=== PATIENT | male | born 1950 | race African-American/Black ===

== ENCOUNTER 2021-07-25 17:40 | Inpatient (IN) ==
[2021-07-25] MEDS ORDERED: ONDANSETRON 4 MG/2 ML VIAL IV PRN (20:50)
[2021-07-25] MEDS ORDERED: ACETAMINOPHEN 325 MG TABLET PO PRN (20:50)
[2021-07-25] MEDS ORDERED: ZALEPLON 5 MG CAPSULE PO PRN (20:50)
[2021-07-25] MEDS ORDERED: DEXTROSE 10% 250 ML BAG IV PRN (20:50)
[2021-07-25] MEDS ORDERED: diphenhydrAMINE CAP 25 MG CAPSULE PO PRN (20:50)
[2021-07-25] MEDS ORDERED: GLUCAGON 1 MG VIAL IM PRN (20:50)
[2021-07-25] MEDS ORDERED: guaiFENesin/DM ER 600-30 MG TABLET PO PRN (20:50)
[2021-07-25] MEDS ORDERED: NICOTINE 21 MG/24 HR PATCH TRANSDERM PRN (20:50)
[2021-07-25] MEDS ORDERED: hydrALAZINE 20 MG/1 ML VIAL IV PRN (20:50)
[2021-07-25 21:13] LABS: Basophils % 0.2 % (0.0-0.8); Eosinophils # 0.1 10*3/uL (0.0-0.87); Eosinophils % 2.4 % (0.00-10.9); Hematocrit 34.8 VOL% (42.0-52.0); Hemoglobin 10.9 GM/DL (14.0-18.0); Immature Granulocytes % 0.4 %; Immature Granulocytes Absolute 0.02 #; Lymphocytes # 1.3 10*3/uL (1.4-4.0); Lymphocytes % 25.9 % (21.2-54.2); Mean Corpuscular HGB Conc 31.3 GM/DL (32-36); Mean Platelet Volume 10.6 FL (9.6-12.0); Monocytes # 0.7 10*3/uL (0.11-0.8); Monocytes % 13.9 % (1.7-12.7); Neutrophils % 57.2 % (38.7-73.9); Platelet Count 215 T/CUMM (130-400); Red Blood Count 4.52 MC/CUMM (3.8-5.5); Red Cell Distribution Width 14.9 % (9.3-17.3)
[2021-07-25 21:33] LABS: Calcium 8.6 MG/DL (8.5-10.1); Osmolality,Calculated 280.3 MOS/KG (273-304); Potassium 3.8 MMOL/L (3.5-5.1)
[2021-07-25] MEDS ORDERED: ENOXAPARIN 150 MG/ML SYRINGE SUBCUT ONE (21:41)
[2021-07-25 21:50] LABS: INR 1.1; PT Patient Result 11.9 SECS (10.5-12.0)
[2021-07-25] MEDS: METOPROLOL TARTRATE 25 MG TABLET PO SCH (22:19)
[2021-07-26] MEDS: ALBUTEROL/IPRATROPIUM 3 ML NEB RESP TX SCH ×4 (01:29→19:18)
[2021-07-26 02:06] LABS: Barbiturates Screen,Urine Negative (Negative); Benzodiazepines Screen,Urine Negative (Negative); Cannabinoid Screen,Urine Negative (Negative); Opiate Screen,Urine Positive (Negative); Phencyclidine Screen,Urine Negative (Negative)
[2021-07-26] MEDS ORDERED: MAGNESIUM SULF RIDER 2 GM/50 ML PREMIX IV PRN (06:23)
[2021-07-26 08:03] LABS: Calcium 8.7 MG/DL (8.5-10.1); Potassium 3.8 MMOL/L (3.5-5.1)
[2021-07-26 08:08] LABS: Osmolality,Calculated 282.3 MOS/KG (273-304)
[2021-07-26] MEDS ORDERED: MAGNESIUM SULF RIDER 2 GM/50 ML PREMIX IV ONE (08:31)
[2021-07-26] MEDS: METOPROLOL TARTRATE 25 MG TABLET PO SCH ×2 (09:46→20:36)
[2021-07-26] MEDS: PANTOPRAZOLE 40 MG TABLET PO SCH (09:46)
[2021-07-26] MEDS ORDERED: SKIN HEALING OINT (AQUAPHOR) 50 GM TUBE TOP PRN (14:06)
[2021-07-26] MEDS ORDERED: FUROSEMIDE 40 MG/4 ML VIAL IV SCH (16:00)
[2021-07-26] MEDS: FUROSEMIDE 40 MG TABLET PO SCH (16:29)
[2021-07-26] MEDS: APIXABAN 5 MG TABLET PO SCH (20:36)
[2021-07-27] MEDS: ALBUTEROL/IPRATROPIUM 3 ML NEB RESP TX SCH ×4 (00:06→19:05)
[2021-07-27 04:40] LABS: Basophils % 0.2 % (0.0-0.8); Eosinophils # 0.1 10*3/uL (0.0-0.87); Eosinophils % 2.2 % (0.00-10.9); Hematocrit 31.9 VOL% (42.0-52.0); Hemoglobin 9.6 GM/DL (14.0-18.0); Immature Granulocytes % 0.4 %; Immature Granulocytes Absolute 0.02 #; Lymphocytes # 1.5 10*3/uL (1.4-4.0); Lymphocytes % 31.9 % (21.2-54.2); Mean Corpuscular HGB Conc 30.1 GM/DL (32-36); Mean Platelet Volume 11.3 FL (9.6-12.0); Monocytes # 0.8 10*3/uL (0.11-0.8); Monocytes % 16.5 % (1.7-12.7); Neutrophils % 48.8 % (38.7-73.9); Platelet Count 170 T/CUMM (130-400); Red Blood Count 4.04 MC/CUMM (3.8-5.5); Red Cell Distribution Width 14.8 % (9.3-17.3); White Blood Count 4.6 T/CUMM (4-12)
[2021-07-27 05:03] LABS: Calcium 8.5 MG/DL (8.5-10.1); Eosinophils 3 % (0-10); Hypochromia 1+; Lymphocytes 28 % (20-55); Microcytosis 1+; Osmolality,Calculated 280.4 MOS/KG (273-304); Platelet Estimate Adequate; Total Cells Counted 100
[2021-07-27] MEDS: FUROSEMIDE 40 MG TABLET PO SCH ×2 (09:35→16:12)
[2021-07-27] MEDS: PANTOPRAZOLE 40 MG TABLET PO SCH (09:35)
[2021-07-27] MEDS: APIXABAN 5 MG TABLET PO SCH ×2 (09:35→20:27)
[2021-07-27] MEDS: METOPROLOL TARTRATE 25 MG TABLET PO SCH ×2 (09:35→20:27)
[2021-07-27 15:23] LABS: Arterial Base Excess iSTAT 8 MMOL/L (-2.5-2.5); Arterial Bicarbonate iSTAT 32.8 MMOL/L (20-26); Arterial O2 Saturation iSTAT 97 % (95-100); Arterial PCO2 iSTAT 47 MM HG (35-48); Arterial PO2 iSTAT 90 MM HG (80-95); Arterial Total CO2 iSTAT 34 MMO/L (23-27)
[2021-07-27 15:35] LABS: Bilirubin,Urine Negative (Negative); Blood, Urine Large mg/dL (Negative); Glucose,Urine (UA) Negative (Negative); Ketones,Urine Negative (Negative); Mucus,Urine Occasional /LPF (Occasional); Nitrite,Urine Negative (Negative); Protein,Urine Negative (Negative); RBC,Urine 196 /HPF (0-4); Urine Appearance Clear (Clear); Urine Color Yellow (Yellow)
[2021-07-28] MEDS: ALBUTEROL/IPRATROPIUM 3 ML NEB RESP TX SCH ×4 (02:11→19:30)
[2021-07-28 05:01] LABS: Basophils % 0.4 % (0.0-0.8); Eosinophils # 0.1 10*3/uL (0.0-0.87); Eosinophils % 2.8 % (0.00-10.9); Hematocrit 32.7 VOL% (42.0-52.0); Immature Granulocytes % 0.4 %; Immature Granulocytes Absolute 0.02 #; Lymphocytes # 1.3 10*3/uL (1.4-4.0); Mean Corpuscular HGB Conc 30.6 GM/DL (32-36); Mean Corpuscular Volume 79.2 FL (87-102); Mean Platelet Volume 10.6 FL (9.6-12.0); Monocytes # 0.8 10*3/uL (0.11-0.8); Neutrophils % 53.4 % (38.7-73.9); Platelet Count 162 T/CUMM (130-400); Red Blood Count 4.13 MC/CUMM (3.8-5.5); Red Cell Distribution Width 14.6 % (9.3-17.3); White Blood Count 4.7 T/CUMM (4-12)
[2021-07-28 05:21] LABS: Calcium 8.8 MG/DL (8.5-10.1); Osmolality,Calculated 275.7 MOS/KG (273-304); Potassium 4.1 MMOL/L (3.5-5.1)
[2021-07-28 05:26] LABS: Band Neutrophils 1 % (0-10); Eosinophils 2 % (0-10); Hypochromia 1+; Lymphocytes 29 % (20-55); Microcytosis 1+; Total Cells Counted 100
[2021-07-28 05:27] LABS: Ovalocytes Few; Platelet Estimate Adequate
[2021-07-28] MEDS: APIXABAN 5 MG TABLET PO SCH ×2 (10:46→21:38)
[2021-07-28] MEDS: PANTOPRAZOLE 40 MG TABLET PO SCH (10:46)
[2021-07-28] MEDS: FUROSEMIDE 40 MG TABLET PO SCH ×2 (10:46→18:11)
[2021-07-28] MEDS: METOPROLOL TARTRATE 25 MG TABLET PO SCH ×2 (10:46→21:38)
[2021-07-28] MEDS ORDERED: MORPHINE 2 MG/1 ML SYRINGE IV PRN (20:04)
[2021-07-29] MEDS: ALBUTEROL/IPRATROPIUM 3 ML NEB RESP TX SCH ×4 (01:00→19:35)
[2021-07-29 06:00] LABS: Basophils % 0.5 % (0.0-0.8); Eosinophils # 0.1 10*3/uL (0.0-0.87); Eosinophils % 3.3 % (0.00-10.9); Hematocrit 34.9 VOL% (42.0-52.0); Hemoglobin 10.6 GM/DL (14.0-18.0); Immature Granulocytes % 0.5 %; Immature Granulocytes Absolute 0.02 #; Lymphocytes # 1.2 10*3/uL (1.4-4.0); Lymphocytes % 28.3 % (21.2-54.2); Mean Corpuscular HGB Conc 30.4 GM/DL (32-36); Mean Corpuscular Volume 78.8 FL (87-102); Mean Platelet Volume 10.5 FL (9.6-12.0); Monocytes # 0.6 10*3/uL (0.11-0.8); Monocytes % 14.5 % (1.7-12.7); Neutrophils % 52.9 % (38.7-73.9); Platelet Count 174 T/CUMM (130-400); Red Blood Count 4.43 MC/CUMM (3.8-5.5); Red Cell Distribution Width 14.4 % (9.3-17.3); White Blood Count 4.3 T/CUMM (4-12)
[2021-07-29 06:17] LABS: Potassium 4.2 MMOL/L (3.5-5.1)
[2021-07-29 07:13] LABS: Sedimentation Rate-Westergren 75 MM/HR (0-20)
[2021-07-29] MEDS: METOPROLOL TARTRATE 25 MG TABLET PO SCH ×2 (09:31→21:50)
[2021-07-29] MEDS: FUROSEMIDE 40 MG TABLET PO SCH ×2 (09:31→17:55)
[2021-07-29] MEDS: APIXABAN 5 MG TABLET PO SCH ×2 (09:31→21:50)
[2021-07-29] MEDS: PANTOPRAZOLE 40 MG TABLET PO SCH (09:32)
[2021-07-29] MEDS: CYCLOBENZAPRINE 10 MG TABLET PO PRN ×2 (10:26→21:50)
[2021-07-29] MEDS: LACTULOSE 20 GM/30 ML UDCUP PO SCH ×2 (10:27→21:51)
[2021-07-29] MEDS: GABAPENTIN 300 MG CAPSULE PO SCH (21:50)
[2021-07-30] MEDS: ALBUTEROL/IPRATROPIUM 3 ML NEB RESP TX SCH ×2 (00:35→07:25)
[2021-07-30 05:37] LABS: Basophils % 0.4 % (0.0-0.8); Eosinophils # 0.1 10*3/uL (0.0-0.87); Eosinophils % 2.6 % (0.00-10.9); Hematocrit 34.1 VOL% (42.0-52.0); Hemoglobin 10.3 GM/DL (14.0-18.0); Immature Granulocytes % 0.4 %; Immature Granulocytes Absolute 0.02 #; Lymphocytes # 1.1 10*3/uL (1.4-4.0); Lymphocytes % 22.9 % (21.2-54.2); Mean Corpuscular HGB Conc 30.2 GM/DL (32-36); Mean Corpuscular Volume 78.9 FL (87-102); Mean Platelet Volume 10.1 FL (9.6-12.0); Monocytes # 0.7 10*3/uL (0.11-0.8); Monocytes % 13.7 % (1.7-12.7); Platelet Count 198 T/CUMM (130-400); Red Blood Count 4.32 MC/CUMM (3.8-5.5); Red Cell Distribution Width 14.2 % (9.3-17.3)
[2021-07-30 05:56] LABS: Calcium 8.7 MG/DL (8.5-10.1); Osmolality,Calculated 276.7 MOS/KG (273-304); Potassium 4.1 MMOL/L (3.5-5.1)
[2021-07-30] MEDS: LACTULOSE 20 GM/30 ML UDCUP PO SCH ×2 (10:02→21:58)
[2021-07-30] MEDS: PANTOPRAZOLE 40 MG TABLET PO SCH (10:02)
[2021-07-30] MEDS: APIXABAN 5 MG TABLET PO SCH ×2 (10:02→21:59)
[2021-07-30] MEDS: METOPROLOL TARTRATE 25 MG TABLET PO SCH ×2 (10:02→21:59)
[2021-07-30] MEDS: FUROSEMIDE 40 MG TABLET PO SCH ×2 (10:02→15:23)
[2021-07-30] MEDS: cefTRIAXone 1,000 MG in SODIUM CHLORIDE 0.9% 100 ML IV SCH (10:03)
[2021-07-30] MEDS: AZITHROMYCIN INJ 500 MG in SODIUM CHLORIDE 0.9% 250 ML IV SCH (11:57)
[2021-07-30] MEDS: LEVALBUTEROL 1.25 MG/3 ML NEB RESP TX SCH ×2 (13:10→18:33)
[2021-07-30] MEDS: CYCLOBENZAPRINE 10 MG TABLET PO PRN (21:58)
[2021-07-30] MEDS: GABAPENTIN 300 MG CAPSULE PO SCH (21:58)
[2021-07-31] MEDS: LEVALBUTEROL 1.25 MG/3 ML NEB RESP TX SCH ×4 (00:49→19:09)
[2021-07-31 05:16] LABS: Basophils % 0.4 % (0.0-0.8); Eosinophils # 0.1 10*3/uL (0.0-0.87); Eosinophils % 3.1 % (0.00-10.9); Hematocrit 33.7 VOL% (42.0-52.0); Hemoglobin 10.3 GM/DL (14.0-18.0); Immature Granulocytes % 0.4 %; Immature Granulocytes Absolute 0.02 #; Lymphocytes # 1.3 10*3/uL (1.4-4.0); Lymphocytes % 28.3 % (21.2-54.2); Mean Corpuscular HGB Conc 30.6 GM/DL (32-36); Mean Corpuscular Volume 79.1 FL (87-102); Mean Platelet Volume 10.8 FL (9.6-12.0); Monocytes # 0.7 10*3/uL (0.11-0.8); Monocytes % 15.7 % (1.7-12.7); Neutrophils % 52.1 % (38.7-73.9); Platelet Count 201 T/CUMM (130-400); Red Blood Count 4.26 MC/CUMM (3.8-5.5); Red Cell Distribution Width 14.3 % (9.3-17.3); White Blood Count 4.5 T/CUMM (4-12)
[2021-07-31 05:42] LABS: Calcium 9.4 MG/DL (8.5-10.1); Osmolality,Calculated 268.2 MOS/KG (273-304); Potassium 3.9 MMOL/L (3.5-5.1)
[2021-07-31 06:06] LABS: Band Neutrophils 1 % (0-10); Eosinophils 6 % (0-10); Lymphocytes 30 % (20-55); Total Cells Counted 100
[2021-07-31 06:07] LABS: Hypochromia 1+; Microcytosis 1+; Ovalocytes Slight; Target Cells Slight
[2021-07-31 06:08] LABS: Platelet Estimate Normal
[2021-07-31] MEDS: PANTOPRAZOLE 40 MG TABLET PO SCH (09:41)
[2021-07-31] MEDS: LACTULOSE 20 GM/30 ML UDCUP PO SCH ×2 (09:41→21:46)
[2021-07-31] MEDS: METOPROLOL TARTRATE 25 MG TABLET PO SCH ×2 (09:41→21:46)
[2021-07-31] MEDS: cefTRIAXone 1,000 MG in SODIUM CHLORIDE 0.9% 100 ML IV SCH (09:41)
[2021-07-31] MEDS: APIXABAN 5 MG TABLET PO SCH ×2 (09:41→21:46)
[2021-07-31] MEDS: FUROSEMIDE 40 MG TABLET PO SCH ×2 (09:41→16:28)
[2021-07-31] MEDS: AZITHROMYCIN INJ 500 MG in SODIUM CHLORIDE 0.9% 250 ML IV SCH (10:20)
[2021-07-31] MEDS: GABAPENTIN 300 MG CAPSULE PO SCH (21:46)
[2021-08-01] MEDS: LEVALBUTEROL 1.25 MG/3 ML NEB RESP TX SCH ×4 (01:45→20:05)
[2021-08-01 06:11] LABS: Basophils % 0.6 % (0.0-0.8); Eosinophils # 0.2 10*3/uL (0.0-0.87); Eosinophils % 3.6 % (0.00-10.9); Hematocrit 32.7 VOL% (42.0-52.0); Hemoglobin 9.9 GM/DL (14.0-18.0); Immature Granulocytes % 0.4 %; Immature Granulocytes Absolute 0.02 #; Lymphocytes # 1.2 10*3/uL (1.4-4.0); Lymphocytes % 26.1 % (21.2-54.2); Mean Corpuscular HGB Conc 30.3 GM/DL (32-36); Mean Corpuscular Volume 78.8 FL (87-102); Mean Platelet Volume 11.4 FL (9.6-12.0); Monocytes # 0.7 10*3/uL (0.11-0.8); Monocytes % 14.1 % (1.7-12.7); Neutrophils % 55.2 % (38.7-73.9); Platelet Count 203 T/CUMM (130-400); Red Blood Count 4.15 MC/CUMM (3.8-5.5); Red Cell Distribution Width 14.2 % (9.3-17.3); White Blood Count 4.7 T/CUMM (4-12)
[2021-08-01 06:36] LABS: Calcium 8.8 MG/DL (8.5-10.1); Osmolality,Calculated 277.7 MOS/KG (273-304); Potassium 3.9 MMOL/L (3.5-5.1)
[2021-08-01] MEDS: METOPROLOL TARTRATE 25 MG TABLET PO SCH ×2 (09:39→21:28)
[2021-08-01] MEDS: PANTOPRAZOLE 40 MG TABLET PO SCH (09:39)
[2021-08-01] MEDS: LACTULOSE 20 GM/30 ML UDCUP PO SCH ×2 (09:39→21:28)
[2021-08-01] MEDS: APIXABAN 5 MG TABLET PO SCH ×2 (09:39→21:28)
[2021-08-01] MEDS: FUROSEMIDE 40 MG TABLET PO SCH ×2 (09:43→16:57)
[2021-08-01] MEDS: cefTRIAXone 1,000 MG in SODIUM CHLORIDE 0.9% 100 ML IV SCH (09:45)
[2021-08-01] MEDS: AZITHROMYCIN INJ 500 MG in SODIUM CHLORIDE 0.9% 250 ML IV SCH (10:24)
[2021-08-01] MEDS: ASCORBIC ACID 500 MG TABLET PO SCH (21:28)
[2021-08-01] MEDS: GABAPENTIN 300 MG CAPSULE PO SCH (21:28)
[2021-08-01] MEDS: CYCLOBENZAPRINE 10 MG TABLET PO PRN (21:28)
[2021-08-02] MEDS: LEVALBUTEROL 1.25 MG/3 ML NEB RESP TX SCH ×3 (01:51→12:47)
[2021-08-02 05:26] LABS: Basophils % 0.7 % (0.0-0.8); Eosinophils # 0.2 10*3/uL (0.0-0.87); Eosinophils % 4.5 % (0.00-10.9); Hematocrit 34.6 VOL% (42.0-52.0); Hemoglobin 10.4 GM/DL (14.0-18.0); Immature Granulocytes % 0.5 %; Immature Granulocytes Absolute 0.02 #; Lymphocytes # 1.1 10*3/uL (1.4-4.0); Lymphocytes % 25.6 % (21.2-54.2); Mean Corpuscular HGB Conc 30.1 GM/DL (32-36); Mean Corpuscular Volume 80.8 FL (87-102); Mean Platelet Volume 10.9 FL (9.6-12.0); Monocytes # 0.6 10*3/uL (0.11-0.8); Monocytes % 14.4 % (1.7-12.7); Neutrophils % 54.3 % (38.7-73.9); Platelet Count 201 T/CUMM (130-400); Red Blood Count 4.28 MC/CUMM (3.8-5.5); Red Cell Distribution Width 14.2 % (9.3-17.3); White Blood Count 4.3 T/CUMM (4-12)
[2021-08-02 05:40] LABS: Calcium 8.9 MG/DL (8.5-10.1); Osmolality,Calculated 276.7 MOS/KG (273-304); Potassium 3.9 MMOL/L (3.5-5.1)
[2021-08-02] MEDS: FUROSEMIDE 40 MG TABLET PO SCH ×2 (08:41→16:37)
[2021-08-02] MEDS: ASCORBIC ACID 500 MG TABLET PO SCH (08:41)
[2021-08-02] MEDS: PANTOPRAZOLE 40 MG TABLET PO SCH (08:41)
[2021-08-02] MEDS: cefTRIAXone 1,000 MG in SODIUM CHLORIDE 0.9% 100 ML IV SCH (08:42)
[2021-08-02] MEDS: LACTULOSE 20 GM/30 ML UDCUP PO SCH ×2 (08:42→14:17)
[2021-08-02] MEDS: APIXABAN 5 MG TABLET PO SCH (08:43)
[2021-08-02] MEDS: METOPROLOL TARTRATE 25 MG TABLET PO SCH (08:43)
[2021-08-02] MEDS ORDERED: MULTIVITAMIN (CENTRUM) TABLET PO SCH (09:00)
[2021-08-02] MEDS: AZITHROMYCIN INJ 500 MG in SODIUM CHLORIDE 0.9% 250 ML IV SCH (09:26)
[2021-08-02 16:06] VITALS: BP 120/71
[2021-08-02] MEDS ORDERED: DEXAMETHASONE 0.5 MG TABLET PO SCH (21:00)
== END 2021-08-02 19:00 | disposition hospice, home (50) | DRG 308 ==
LOC: N.TELES → SUATTDRO 20:06
PROVIDERS: ADMIT Internal Medicine; ATTEND Internal Medicine